=== PATIENT | male | born 1975 | race Caucasian/White ===

== ENCOUNTER 2020-04-28 16:45 | Emergency (ER) | payer SELFPAY ==
[2020-04-28 17:07] VITALS: BP 143/80
--- NOTE | 2020-04-28 22:05 | EKG REPORT ---
SEVERITY:- OTHERWISE NORMAL ECG - SINUS TACHYCARDIA : Confirmed by: Teo Arriaza 28-Apr-2020 22:03:52
== END 2020-04-28 18:46 | disposition left against medical advice (07) ==
LOC: ER 16:45
DX: Z53.21 Procedure and treatment not carried out due to patient leaving prior to being seen by health care provider (principal)
CPT/HCPCS: 93005; 93010